=== PATIENT | female | born 1995 | race Caucasian/White ===

== ENCOUNTER 2017-01-11 13:57 | Emergency (ER) | payer OTHER ==
[~2017-01-11] VITALS: Ht 165.1 cm; Wt 72.6 kg
[2017-01-11 14:36] LABS: HEMATOCRIT 35.5 % (36.0-46.0); MCH 28.2 PG (29.0-34.0); MCHC 33.5 G/DL (30.0-36.0); MCV 84.1 FL (83-99); MEAN PLAT.VOLUME 9.1 uM^3 (9.5-12.4); PLATELET COUNT 288 K/uL (156-360); RBC DIS.WIDTH-CV 12.4 % (11.8-14.6); RBC DIS.WIDTH-SD 37.7 % (39-53); RED BLOOD COUNT 4.22 M/uL (3.80-5.20); WHITE BLOOD COUNT 8.8 K/uL (4.1-10.2)
[2017-01-11 14:49] LABS: CHLORIDE 105 mEq/L (99-109); POTASSIUM 4.3 mEq/L (3.7-5.4); SODIUM 138 mEq/L (136-147)
[2017-01-11 14:52] LABS: GLUCOSE 92 mg/dL (70-99)
[2017-01-11 14:53] LABS: ANION GAP 6 MEQ/L (2-14)
[2017-01-11 14:54] LABS: TOTAL BILIRUBIN 0.6 mg/dL (0.0-1.0)
[2017-01-11 14:54] LABS: ADD MIUA? YES; BILIRUBIN NEGATIVE; BLOOD MODERATE; COLOR STRAW ((YELLOW)); GLUCOSE (STRIP) NEGATIVE; KETONES NEGATIVE; LEUKOCYTES NEGATIVE; NITRITE NEGATIVE; PROTEIN (STRIP) NEGATIVE; SPECIFIC GRAVITY 1.005 (1.000-1.030); UROBILINOGEN 0.2 MG/DL (0.2-1.0)
[2017-01-11 14:55] LABS: ALKALINE PHOSPHATASE 64 IU/L (3-129)
[2017-01-11 14:57] LABS: UREA NITROGEN (BUN) 8 mg/dL (9-23)
[2017-01-11 14:57] LABS: BACTERIA NONE SEEN /HPF; EPITHELIAL CELLS RARE /HPF; MUCUS NONE SEEN /LPF; RED BLOOD CELLS 0-5 /HPF (0-5); WHITE BLOOD CELLS 0-5 /HPF (0-5)
[2017-01-11 14:58] LABS: GFR ESTIMATE (CALCULATED) > 59 mL/min/
[2017-01-11 14:59] LABS: LIPASE 43 U/L (1.0-51.0)
[2017-01-11 17:01] VITALS: BP 117/75
== END 2017-01-11 17:05 | disposition home or self-care (01) ==
LOC: EME 13:57
PROVIDERS: Nurse Practitioner Family
DX: O46.8X1 Other antepartum hemorrhage, first trimester (principal); Z3A.01 Less than 8 weeks gestation of pregnancy; O99.351 Diseases of the nervous system complicating pregnancy, first trimester; G93.2 Benign intracranial hypertension
CPT/HCPCS: 76801; 80053; 81003; 83690; 84702; 85027; 99281; 99284